=== PATIENT | female | born 1935 | race Caucasian/White ===

== ENCOUNTER → 2016-11-24 | Outpatient (CLI) | payer OTHER, MEDICARE ==
[~2016-11-24] MED LIST: ADULT LOW DOSE81 MG PO; ALTACE5 M1 PO; AMITRIPTYLINE H25 M2 PO; ASPIRIN EC81 M1 PO; BETIMOL10 ML; BYSTOLIC 5 MG5 M1 PO; CELEXA40 MG PO; CRESTOR20 MG PO; ELEMENTAL CALC600 MG PO; FISH OIL 1,001000 MG PO; FISH OIL 1,2001 EAC4 PO; HYDROCHLOROTH12.5 MG PO; LEVOXYL112 MCG PO; MULTI-VITAMIN1 EAC5 PO; PHOSLO667 MG; PULMICORT0.5 MG/21 INH; SINGULAIR 10 MG10 MG PO; TIMOPTIC2.5 M1 OPHTHALMIC; TRAMADOL 50 MG50 MG PO; TRAVATAN 0.004%5 ML OPHTHALMIC; VITAMIN D32000 UNI1 PO; VITAMIN D400 UNI1; ZYRTEC10 M2 PO
== END ==
LOC: NUC 09:41
DX: R82.8 Abnormal findings on cytological and histological examination of urine (principal); R10.11 Right upper quadrant pain